=== PATIENT | male | born 1960 | race Caucasian/White ===

== ENCOUNTER 2020-09-15 04:20 | Day surgery (SDC) | payer OTHER ==
[2020-09-10 11:18] VITALS: BMI 22.9
[2020-09-15] MEDS ORDERED: MIDAZOLAM HCL 2 MG/2 ML SINGLE DOSE VIAL ONE ×2 (12:20)
[2020-09-15] MEDS ORDERED: DEXAMETHASONE SOD PHOSPHATE 4 MG/1 ML VIAL ONE (12:21)
[2020-09-15 14:33] VITALS: BP 128/77; PULSE 72; TEMP 98
== END 2020-09-15 14:25 | disposition home or self-care (01) ==
LOC: JASU-SURG 04:20
PROVIDERS: ATTEND Urology
PROC: 0TF4XZZ Fragmentation in Left Kidney Pelvis, External Approach (ICD-10-PCS; principal; 2020-09-15 11:30)
DX: N20.0 Calculus of kidney (principal)

== ENCOUNTER 2021-02-02 04:28 | Day surgery (SDC) | payer OTHER ==
[2021-01-29 15:27] VITALS: BMI 22.7
[2021-02-02] MEDS ORDERED: PROPOFOL 20 ML ONE ×2 (10:15)
[2021-02-02] MEDS ORDERED: LIDOCAINE HCL/PF 2% SDV 5ML VIAL ONE (10:26)
[2021-02-02 18:05] VITALS: BP 120/70; PULSE 65; TEMP 97.2
== END 2021-02-02 14:00 | disposition home or self-care (01) ==
LOC: JASU-SURG 04:28
PROVIDERS: ATTEND Urology
PROC: 0TF4XZZ Fragmentation in Left Kidney Pelvis, External Approach (ICD-10-PCS; principal; 2021-02-02 10:30)
DX: N20.0 Calculus of kidney (principal)

== ENCOUNTER 2023-06-20 04:26 | Day surgery (SDC) | payer OTHER ==
[2023-06-14 16:00] VITALS: BMI 22.9
[2023-06-20] MEDS ORDERED: MIDAZOLAM HCL 2 MG/2 ML SINGLE DOSE VIAL ONE (11:25)
[2023-06-20 12:00] VITALS: RESP 16
[2023-06-20 12:54] VITALS: BP 150/96; PULSE 72; TEMP 96.8
== END 2023-06-20 13:18 | disposition home or self-care (01) ==
LOC: JASU-SURG 04:26
PROVIDERS: ATTEND Urology
PROC: 0TF3XZZ Fragmentation in Right Kidney Pelvis, External Approach (ICD-10-PCS; principal; 2023-06-20 11:30)
DX: N20.0 Calculus of kidney (principal)